=== PATIENT | female | born 1995 | race Hispanic/Latino ===

== ENCOUNTER 2025-10-16 14:24 | Emergency (ER) | payer SELFPAY ==
[2025-10-16] MEDS ORDERED: Acetaminophen 500 MG TAB ONE (15:08)
[2025-10-16] MEDS ORDERED: Dexamethasone 10 MG/ML VIAL ONE (15:08)
== END 2025-10-16 15:37 | disposition home or self-care (01) ==
LOC: ERS 14:24
DX: J11.1 Influenza due to unidentified influenza virus with other respiratory manifestations (principal)
CPT/HCPCS: 71046; 87428; 94640; J1100